=== PATIENT | female | born 1975 ===

== ENCOUNTER 2017-09-25 08:28 | Observation (INO) | payer OTHER ==
--- NOTE | 2017-09-25 08:44 | ED PDOC ---
Arrival/HPI - General Chief Complaint: Chest Pain Time Seen by Provider: 09/25/17 08:43 Historian: Patient, EMS - History of Present Illness Narrative History of Present Illness (Text): 09/25/17 08:50 pt p/w + 1 day onset of left chest discomfort, at most pain was 10/10, pt states chest pain is non-radiating and intermittently waxing and waning; pt has no energy, very fatigued, short of breath easily with exertion, + intermittent nausea/vomiting, pt vomited while in the EMS; pt states + dizziness/ lightheadedness (no LOC); pt states she was calmy/sweaty with her onset of chest pain; pt states no fever/chills, no palpitations, no abd pain, no urinary/ bowel changes, no rashes/lesions, no Fall/trauma/sick contact, no travel; pt denied any bleeding currently pt recently was admitted at [facility] 2 weeks ago and was told she had a heart attack and was subsequently discharged a few days later; pt then developed another episode of chest pain and was admitted into [facility] 8 days ago, pt received 2 cardiac stents 5 days ago and was discharged home 4 days ago; pt is due for another stent placement at [facility] this coming sunday (3 days from now) PCP: Dr Vizcaion Cards: Dr Gonzalez Time/Duration: 24 hours Symptom Onset: Sudden Symptom Course: Worsening Quality: Tightness, Cramping Severity Level: Severe Activities at Onset: Rest Context: Home Past Medical History - Provider Review Nursing Documentation Reviewed: Yes - Travel History Have you recently traveled outside [place] w/in the past 3 mons?: No - Past History Past History: Non-Contributing - Infectious Disease Hx of Infectious Diseases: None - Reproductive Currently : Unknown - Cardiac Hx Cardiac Disorders: Yes (CABG) - Pulmonary Hx Respiratory Disorders: No - Neurological Hx Neurological Disorder: No - HEENT Hx HEENT Disorder: No - Renal Hx Renal Disorder: No - Endocrine/Metabolic Hx Endocrine Disorders: No - Hematological/Oncological Hx Blood Disorders: No - Integumentary Hx Dermatological Disorder: No - Musculoskeletal/Rheumatological Hx Falls: No Hx Herniated Disk: Yes (chronic back pain) - Gastrointestinal Hx Gastrointestinal Disorders: No - Genitourinary/Gynecological Hx Genitourinary Disorders: No - Psychiatric Hx Psychophysiologic Disorder: No Hx Substance Use: No - Surgical History Hx Open Heart Surgery: Yes (Cabg) Family/Social History - Physician Review Nursing Documentation Reviewed: Yes Family/Social History: Unknown Family HX Smoking Status: Never Smoked Hx Alcohol Use: No Hx Substance Use: No Hx Substance Use Treatment: No Allergies/Home Meds Allergies/Adverse Reactions: Allergies No Known Allergies Allergy (Verified 09/25/17 08:59) Home Medications: Home Meds Medication Instructions Recorded Confirmed Atorvastatin Calcium [Lipitor] 40 mg PO DAILY 01/10/14 09/25/17 Metoprolol Tartrate [Lopressor] 12.5 mg PO BID 09/25/17 09/25/17 Multivitamin [Daily Mary] 1 tab PO DAILY 09/25/17 09/25/17 Pantoprazole Sodium [Protonix] 40 mg PO DAILY 09/25/17 09/25/17 Ranolazine [Ranexa] 500 mg PO BID 09/25/17 09/25/17 Ticagrelor [Brilinta] 90 mg PO BID 09/25/17 09/25/17 Review of Systems - Review of Systems Constitutional: Fatigue Eyes: Normal ENT: Normal Respiratory: Normal Cardiovascular: Chest Pain, SANCHEZ Gastrointestinal: Nausea, Vomiting. absent: Abdominal Pain, Appetite Changes Genitourinary Female: Normal Musculoskeletal: Normal Skin: Normal Neurological: Dizziness Endocrine: Normal Hemo/Lymphatic: Normal Psychiatric: Normal Physical Exam - Physical Exam Narrative Physical Exam (Text): 09/25/17 General: alert/awake, GCS = 15, oriented x 3, resting in bed, uncomfortable, cooperative, interactive; NAD Head: NC/AT EYE: PERRLA, EOMI, sclera anicteric, no nystagmus, no photophobia; wearing eye glasses; visual field intact b/l Facial: WNL Oral: uvula/tongue are midline, no exudate/lesions, no drooling/stridor, no dysphonia; intact dentitions NECK: intact ROM, no midline tenderness, no nuchal rigidity, no meningeal signs ; no step off Chest: CTA b/l, no w/r/r; no tachypenia, no accessory muscle use noted Chest Wall: no crepitus, no lesions, no gross deformities, no focal tenderness Cardiac: +S1, +S2, no m/r/r, no tachycardia Abdominal: +BS, soft/nd/nt, well nourished patient; no masses/rebound/guarding/ rigidity; no kirkland's sign, no mcburney's point tenderness Extremities: intact ROM, strength 5/5 grossly intact in all limbs, neurovasc intact b/l; + ambulatory; reflex +2/2; no pitting edema/leg swelling noted b/l; no nora's sign b/l BACK: no step off, no midline tenderness, NO crepitus, no gross deformities noted; Intact ROM SKIN: cap refill < 1 sec, no ulcerations, no petechiae, no rashes; no pallor NEURO: CNII-XII WNL, no facial asymmetries, no slurr speech, oriented x 3 NIH stroke scale ~ 0 Psych: normal insight, flat affect; follows command with ease Vital Signs Reviewed: Yes Vital Signs Temp Pulse Pulse Resp BP BP Pulse Ox 09/25/17 12:00 99 F 57 L 20 127/81 09/25/17 11:36 50 L 18 113/77 98 09/25/17 09:10 62 137/86 09/25/17 09:09 98.3 F 09/25/17 08:44 78 19 137/86 98 Temperature: Afebrile Blood Pressure: Normal Pulse: Regular Respiratory Rate: Normal Appearance: Positive for: Well-Appearing, Non-Toxic, Uncomfortable. No: Comfortable, Ill-Appearing, Unkept Pain Distress: Mild Mental Status: Positive for: Alert and Oriented X 3 - Systems Exam Head: Present: Atraumatic, Normocephalic Medical Decision Making ED Course and Treatment: 09/25/17 Impression: chest pain, n/v I have considered all Differential Diagnosis regarding pt's chief medical complaints/clinical findings included but are not limited to: ACS Plan: -- EKG -- Chest X-ray -- Labs, ACS -- Reassess and disposition Progress Notes: pt took her ASA prior to emergency department arrival, pt was instructed by EMS dispatcher to take a full dose aspirin pt currently states chest discomfort left sided, at 7/10 awaiting diagnostic results pt is requesting to be transferred to [facility] for further cardiac care/evaluation paging Dr Gonzalez 09/25/17 09:05 i was told by community youth secretary that Dr Gonzalez is currently in a procedure, will call back 09/25/17 10:[address] Gonzalez, who recommended pt to be admitted at [facility] and he will try to arrange for a bed for patient; but would like patient admitted currently pt is made aware of her medical results agrees with admission [id number] bobo, convention planner PCP, made aware, agrees with admission; to consult cards (Dr Trinidad); will likely arrange for transfer to [facility] (for Dr Gonzalez ) once pt is settle in the hospital vital signs WNL Re-evaluation Time: 09:01 Reassessment Condition: Improving,but remains with symptoms - Lab Interpretations Lab Results: 09/25/17 08:48 09/25/17 08:48 Lab Results 09/25/17 08:48: Sodium 142, Potassium 3.8, Chloride 106, Carbon Dioxide 23, Anion Gap 17, BUN 10, Creatinine 0.6 L, Est GFR ( Amer) > 60, Est GFR ( Non-Af Amer) > 60, Random Glucose 150 H, Calcium 9.2, Magnesium 1.9, Total Bilirubin 0.6, AST 56 H, ALT 134 H, Alkaline Phosphatase 64, Lactate Dehydrogenase 431, Total Creatine Kinase 50, Troponin I 0.03 D, NT-Pro-B Natriuret Pep 342, Total Protein 8.0, Albumin 4.4, Globulin 3.6, Albumin/ Globulin Ratio 1.2, Lipase 76 09/25/17 08:48: PT 11.8, INR 1.03, APTT 29.6 09/25/17 08:48: WBC 6.1, RBC 4.79, Hgb 15.0, Hct 42.6, MCV 88.9, MCH 31.3, MCHC 35.2, RDW 12.8, Plt Count 350, MPV 9.2, Gran % 61.2, Lymph % (Auto) 30.8, Surry % (Auto) 5.4, Eos % (Auto) 2.3, Baso % (Auto) 0.3, Gran # 3.71, Lymph # (Auto) 1.9, Surry # (Auto) 0.3, Eos # (Auto) 0.1, Baso # (Auto) 0.02 I have reviewed the lab results: Yes Interpretation: Abnormal lab values - RAD Interpretation Narrative RAD Interpretations (Text): 09/25/17 16:01 HISTORY: chest pain, recent MD COMPARISON: 01/08/2014 FINDINGS: LUNGS: No active pulmonary disease. PLEURA: No significant pleural effusion identified, no pneumothorax apparent. CARDIOVASCULAR: CABG. Normal heart size. OSSEOUS STRUCTURES: No significant abnormalities. VISUALIZED UPPER ABDOMEN: Normal. OTHER FINDINGS: None. IMPRESSION: No active disease. Radiology Orders: 09/25/17 08:54 CHEST PORTABLE [RAD] Stat Heat Seal Operator: Radiologist - EKG Interpretation EKG Interpretation (Text): 09/25/17 09:03 NSR at 75 bpm, normal axis, no ectopy, qs in leads III/F, inverted T In leads III/F, incomplete RBBB, no st changes, ABNL EKG; changes compare with old ekg Interpreted by ED Physician: Yes Type: 12 lead EKG Comparison: Different from prev. EKG - Medication Orders Current Medication Orders: Aspirin (Ecotrin) 81 mg PO DAILY ZHEN Atorvastatin Calcium (Lipitor) 40 mg PO DAILY ZHEN Enoxaparin Sodium (Lovenox) 90 mg SC Q12H ZHEN PRN Reason: Protocol Last Admin: 09/25/17 13:46 Dose: 90 mg Subcutaneous Administrations Document 09/25/17 13:46 KL (Rec: 09/25/17 13:47 KL [id number]) Injection Site MAR Injection Site Right Abdomen Charges for Administration # of Subcutaneous Administrations 1 Metoprolol Tartrate (Lopressor) 12.5 mg PO BID ZHEN Nitroglycerin (Nitro-Bid 2% Oint) 0.5 ea TOP Q6H ZHEN Last Admin: 09/25/17 13:38 Dose: Ticagrelor (Brilinta) 90 mg PO BID ZHEN Discontinued Medications Famotidine (Pepcid 20mg/50ml Premix) 20 mg in 50 mls @ 100 mls/hr IVPB STAT STA Stop: 09/25/17 09:24 Last Admin: 09/25/17 09:01 Dose: 100 mls/hr eMAR Start Stop Document 09/25/17 09:01 LAC (Rec: 09/25/17 09:01 LAC [id number]) Intravenous Solution Start Date 09/25/17 Start Time 09:01 End Date 09/25/17 End time 09:10 Total Infusion Time 9 Sodium Chloride (Sodium Chloride 0.9%) 1,000 mls @ 100 mls/hr IV .Q10H ZHEN Last Admin: 09/25/17 11:52 Dose: 100 mls/hr eMAR Start Stop Document 09/25/17 11:52 EQ (Rec: 09/25/17 11:52 EQ [id number]) Intravenous Solution Start Date 09/25/17 Start Time 09:30 Morphine Sulfate (Morphine) 4 mg IVP STAT STA Stop: 09/25/17 08:54 Last Admin: 09/25/17 09:00 Dose: 4 mg MAR Pain Assessment Document 09/25/17 09:00 LAC (Rec: 09/25/17 09:01 LAC [id number]) Pain Reassessment Is this a pain reassessment? No Sleep Is patient sleeping during reassessment? No Presence of Pain Presence of Pain Yes Pain Scale Used Pain Scale Used Numeric Description Intensity of Pain at present 7 IVP Administration Document 09/25/17 09:00 LAC (Rec: 09/25/17 09:01 LAC [id number]) Charges for Administration # of IVP Administrations 1 Nitroglycerin (Nitro-Bid 2% Oint) 1 ea TOP STAT STA Stop: 09/25/17 10:52 Last Admin: 09/25/17 11:52 Dose: 1 ea Ondansetron HCl (Zofran Inj) 4 mg IVP STAT STA Stop: 09/25/17 08:55 Last Admin: 09/25/17 09:01 Dose: 4 mg IVP Administration Document 09/25/17 09:01 LAC (Rec: 09/25/17 09:01 LAC [id number]) Charges for Administration # of IVP Administrations 1 Pneumococcal Polyvalent Vaccine (Pneumovax 23 Vaccine) 0.5 ml IM .ONCE ONE Stop: 09/25/17 14:07 Potassium Chloride (K-Dur 20 Meq Er Tab) 40 meq PO ONCE ONE Stop: 09/25/17 13:02 Last Admin: 09/25/17 13:46 Dose: 40 meq - Scribe Statement The provider has reviewed the documentation as recorded by the Prateek Hernandez Provider Scribe Attestation: All medical record entries made by the Scribe were at my direction and personally dictated by me. I have reviewed the chart and agree that the record accurately reflects my personal performance of the history, physical exam, medical decision making, and the department course for this patient. I have also personally directed, reviewed, and agree with the discharge instructions and disposition. Disposition/Present on Arrival - Present on Arrival Any Indicators Present on Arrival: No History of DVT/PE: No History of Uncontrolled Diabetes: No Urinary Catheter: No History of Decub. Ulcer: No History Surgical Site Infection Following: None - Disposition Have Diagnosis and Disposition been Completed?: Yes Diagnosis: Chest pain with high risk for cardiac etiology Disposition: HOSPITALIZED Disposition Time: 10:00 Patient Plan: Admission, Telemetry Patient Problems: Current Active Problems Problem Status Onset Chest pain with high risk for cardiac etiology Acute Condition: STABLE
[2017-09-25 08:47] VITALS: BMI 36.8
[2017-09-25] MEDS ORDERED: Morphine 4 mg/ml ISec IVP STA (08:53)
[2017-09-25] MEDS ORDERED: Famotidine 20mg/50ml 20 MG/50 ML BAG IVPB STA (08:55)
[2017-09-25 09:22] LABS: BASO # 0.02 K/mm3 (0.0-2.0); BASO % 0.3 % (0.0-3.0); EOS # 0.1 (0.0-0.7); EOS % 2.3 % (1.5-5.0); GRAN # 3.71 (1.4-6.5); GRAN % 61.2 % (50.0-68.0); LYMPH # 1.9 (1.2-3.4); LYMPH % 30.8 % (22.0-35.0); MEAN CELL VOLUME 88.9 fl (80.0-105.0); MEAN CORPUSCULAR HEMOGLOBIN 31.3 pg (25.0-35.0); MEAN CORPUSCULAR HGB CONC 35.2 g/dl (31.0-37.0); MEAN PLATELET VOLUME 9.2 fl (7.0-11.0); MONO # 0.3 (0.1-0.6); MONO % 5.4 % (1.0-6.0); RBC 4.79 10^6/uL (3.5-6.1); RED CELL DISTRIBUTION WIDTH 12.8 % (11.5-14.5); WHITE BLOOD COUNT 6.1 10^3/ul (4.5-11.0)
[2017-09-25 09:28] LABS: INR 1.03 (0.93-1.08); PARTIAL THROMBOPLASTIN TIME 29.6 Seconds (25.1-36.5); PROTHROMBIN TIME 11.8 SECONDS (9.4-12.5)
[2017-09-25] MEDS ORDERED: Sodium Chloride 0.9% 1,000 ML IV SCH (09:30)
[2017-09-25 09:49] LABS: ALB/GLOB RATIO 1.2 (1.1-1.8); ALBUMIN 4.4 g/dL (3.0-4.8); ALT/SGPT 134 U/L (7-56); AST/SGOT 56 U/L (14-36); BLOOD UREA NITROGEN 10 mg/dL (7-21); CALCIUM 9.2 mg/dL (8.4-10.5); GFR NON-AFRICAN AMERICAN > 60; LIPASE 76 U/L (23-300)
[2017-09-25 10:06] LABS: B-TYPE NATRIURETIC PEPTIDE 342 pg/mL (0-450)
[2017-09-25 10:07] LABS: TROPONIN I 0.03 ng/mL
[2017-09-25] MEDS ORDERED: Nitroglycerin 2% Ointment Foilpak UD TOP STA (10:51)
[2017-09-25 12:03] LABS: URINE BILIRUBIN NEGATIVE (NEGATIVE); URINE BLOOD NEGATIVE (NEGATIVE); URINE GLUCOSE (UA) NEGATIVE (NEGATIVE); URINE LEUKOCYTE ESTERASE NEGATIVE Leu/uL (NEGATIVE); URINE PROTEIN NEGATIVE mg/dL (<30 mg/dL); URINE UROBILINOGEN 0.2 E.U./dL (<1 E.U./dL)
[2017-09-25 12:05] LABS: URINE APPEARANCE CLEAR (CLEAR); URINE COLOR YELLOW (YELLOW)
[2017-09-25] MEDS ORDERED: Potassium Chloride 20 mEq ER Tab PO ONE (13:01)
--- NOTE | 2017-09-25 13:07 | RAD ---
HISTORY: chest pain, recent [place] COMPARISON: 01/08/2014 FINDINGS: LUNGS: No active pulmonary disease. PLEURA: No significant pleural effusion identified, no pneumothorax apparent. CARDIOVASCULAR: CABG. Normal heart size. OSSEOUS STRUCTURES: No significant abnormalities. VISUALIZED UPPER ABDOMEN: Normal. OTHER FINDINGS: None. IMPRESSION: No active disease.
[2017-09-25] MEDS: Nitroglycerin 2% Ointment Foilpak UD TOP SCH ×2 (13:38→20:08)
[2017-09-25] MEDS: Enoxaparin 100 mg Syringe SC SCH (13:46)
[2017-09-25] MEDS ORDERED: Pneumococcal 23-Valent Vaccine IM ONE (14:06)
[2017-09-25 15:43] LABS: TROPONIN I 0.02 ng/mL
[2017-09-25 22:00] LABS: TROPONIN I 0.02 ng/mL
--- NOTE | 2017-09-25 22:53 | CARD ---
APPROVED REPORT EKG Measurement Heart [id number] <Conclusion> Normal sinus rhythm Incomplete right bundle branch block T wave abnormality, consider inferior ischemia Abnormal ECG
[2017-09-26 00:03] VITALS: O2SAT 100
--- NOTE | 2017-09-26 00:43 | CON ---
DATE: 09/25/2017 REASON FOR THE CONSULTATION AND FOLLOWUP: Chest pain, history of coronary artery disease, history of recent stent deployment. BRIEF CLINICAL HISTORY: This is a 41-year-old hypertensive female with a very strong family history of coronary artery disease, is status post coronary artery bypass surgery 10 years ago at [facility], who recently had chest pain recurrent, admitted 2 weeks ago at [facility] and had a cardiac catheterization done and medical treatment recommended. Then, the patient was readmitted again with chest pain and admitted to [facility] last and had a cardiac catheterization and 2 stents were deployed, left main and circumflex, by Dr. Alex Gonzalez, and at that time, the cardiac catheterization revealed all bypasses closed except [place] patent to LAD, with LAD diffusely diseased. So, Dr. 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 The patient developed chest pain off and on since 3 days like some sensation, so came to the emergency room. Denies any chest pain now. PAST MEDICAL HISTORY: Significant for coronary artery disease status post coronary artery bypass surgery, 5 bypasses 10 years ago at [facility]. Then recently, 2 cardiac catheterization, first in [facility] 2 weeks ago and medical treatment recommended; recently, then again admitted with chest pain at [facility] and cardiac catheterization done by Dr. Alex Gonzalez, stent in left main and circumflex was done last . Past history also significant for hypertension and hyperlipidemia. SOCIAL HISTORY: Denies any smoking. Denies any history of alcohol abuse. FAMILY HISTORY: Very strong family history of coronary artery disease in father and mother, and every family member except her and the youngest brother. PAST SURGICAL HISTORY: Significant for coronary artery bypass surgery 10 years ago. CURRENT MEDICATIONS: The patient is taking baby aspirin 81 mg daily, atorvastatin, aspirin, Brilinta, metoprolol. REVIEW OF SYSTEMS: As per HPI. PHYSICAL EXAMINATION: VITAL SIGNS: Temperature is afebrile, heart rate 54, blood pressure 113/77. HEENT: PERRLA. Extraocular muscles intact. NECK: Supple. No carotid bruits or thyromegaly. CHEST: Clear to auscultation. HEART: S1 and S2 regular. ABDOMEN: Soft. EXTREMITIES: Clubbing and cyanosis negative. LABORATORY DATA: WBC hemoglobin 15, hematocrit 42.6, platelet count 350. Chemistry shows sodium 142, potassium 3, chloride 106, carbon dioxide 23, anion gap of 17, BUN 10, creatinine 0.6. Troponin 0.03. EKG shows normal sinus, incomplete left bundle. IMPRESSION: Unstable angina, hypertension, diabetes, hyperlipidemia, coronary artery disease status post coronary artery bypass graft 10 years ago, status post recent coronary intervention of the circumflex and left main. Discussed with Dr. Alex Gonzalez, who gave the details. The patient had a recent cardiac catheterization and revealed all bypasses closed except left internal mammary artery patent to left anterior descending artery, and left anterior descending distal diffusely diseased. He did a stent in the circumflex and left main, and plan is to do CT of right coronary artery in a month. RECOMMENDATIONS: We will treat unstable angina, Lovenox Brilinta, metoprolol and high dose of Lipitor. Further recommendations will depend on hospital course. If the troponin remains flat, we will discharge the patient, outpatient followup with Dr. Gonzalez, but if the troponin remains positive, then consider cardiac catheterization. We will follow with you. Thank you Dr. Johnson for providing me the opportunity in taking care of Isabel Sims. Preeti Ramirez MD
[2017-09-26] MEDS: Nitroglycerin 2% Ointment Foilpak UD TOP SCH ×2 (01:04→10:58)
[2017-09-26] MEDS: Enoxaparin 100 mg Syringe SC SCH (01:04)
[2017-09-26 06:55] LABS: BASO # 0.02 K/mm3 (0.0-2.0); BASO % 0.2 % (0.0-3.0); EOS # 0.2 (0.0-0.7); EOS % 2.4 % (1.5-5.0); GRAN # 6.73 (1.4-6.5); GRAN % 67.1 % (50.0-68.0); LYMPH # 2.4 (1.2-3.4); LYMPH % 23.5 % (22.0-35.0); MEAN CELL VOLUME 90.4 fl (80.0-105.0); MEAN CORPUSCULAR HEMOGLOBIN 30.6 pg (25.0-35.0); MEAN CORPUSCULAR HGB CONC 33.8 g/dl (31.0-37.0); MEAN PLATELET VOLUME 9.1 fl (7.0-11.0); MONO # 0.7 (0.1-0.6); MONO % 6.8 % (1.0-6.0); RBC 4.58 10^6/uL (3.5-6.1); RED CELL DISTRIBUTION WIDTH 13.1 % (11.5-14.5)
--- NOTE | 2017-09-26 06:58 | HP ---
CHIEF COMPLAINTS: Chest pain. HISTORY OF PRESENT ILLNESS: Ms. Isabel Sims is a 41-year-old female came with left-sided chest discomfort. Pain was like 01/09. Patient stated the chest pain is nonradiating and intermittent, waxing and waning. Patient has no energy. Very fatigued, short of breath easily on exertion plus intermittent nausea and vomiting with pain. Patient vomited while in the EMS. Patient states that, "I have dizziness and lightheadedness." No loss of consciousness. Patient states that she has clammy, sweaty with her onset of the chest pain and states no fever, no chills, no palpitation, no abdominal pain, no urinary or bowel changes. No rashes or lesions, fall, trauma, sick contact. No travel. Patient recently was admitted at [facility] 2 weeks ago and was told that she had a heart attack and was subsequently discharged 2 days later. Patient then developed another episode of chest pain and was admitted in [facility] 8 days ago. Patient received 2 cardiac stents 5 days ago and was discharged home 4 days ago. Patient is due to another stent placement at [facility] this coming Sunday, 3 days from now, but now has chest pain and called 911. Actually, patient was supposed to go to [facility], but patient came to [facility]. [facility] ER physician spoke to Dr. Gonzalez, patient's rn pool. He admitted the patient and the patient was seen in the telemetry. At that moment, she was comfortable. No nausea, vomiting, diarrhea. No headache, no dizziness. No fever, no chills. PAST MEDICAL HISTORY: CABG, chronic back pain, history of open heart surgery. FAMILY HISTORY: Father with a heart attack in his young age. HABITS: Never smoked. No drugs. No ethanol. ALLERGIES: PATIENT IS NOT ALLERGIC WITH ANY MEDICATIONS. HOME MEDICATIONS: Lipitor, Lopressor, multivitamin, sodium, Protonix, Ranexa, Brilinta. REVIEW OF SYSTEMS: Patient was seen and examined at the bedside in her room, having headache, may be due to medicine side effect. Feeling fatigue. Chest pain is better, but still feeling sore. Has a history of nausea and vomiting with chest pain, shortness of breath. No fever. No chills. PHYSICAL EXAMINATION: VITAL SIGNS: Temperature 98.3, respiratory rate 18, pulse 62, blood pressure 113/70, pulse oximetry is 98. HEENT: Head: Normocephalic, atraumatic. Eyes: PERRLA. Extraocular muscles intact. Conjunctivae clear. Nose: Patent. Mucous membrane moist. NECK: Supple. No carotid bruit. No JVD or thyromegaly. CHEST: Bilaterally symmetrical. HEART: S1 and S2 positive. LUNGS: Clear to auscultation. ABDOMEN: Soft. Bowel sounds positive. No organomegaly. EXTREMITIES: No edema. No cyanosis. NEUROLOGICAL: Patient is awake and alert. Moving all 4 extremities. No focal deficits. LABORATORY DATA: White blood cells 6.1, hemoglobin 15, hematocrit 42.6, platelets 350. Sodium 142, potassium 3.8, BUN 10, creatinine 0.6, glucose 150. ASSESSMENT AND PLAN: Ms. Isabel Sims is a 41-year-old lady came with chest pain. Chest x-ray done. No active pulmonary disease. EKG reviewed by me. Aspirin given, atorvastatin given, Lovenox started. Chest pain with a high risk of cardiac etiology because of the family history and her own history because of the coronary artery bypass graft. Patient has recently 2 stents placed, 3rd to be on Sunday, 3 days from today. Patient's rn pool is Dr. Gonzalez. Emergency room physician spoke to Dr. Gonzalez. Right now, we called consult with the rn pool, Dr. Ramirez. Tylenol given for headache. Started home medications. Ruled out gastroesophageal reflux disease, dyspepsia. Gastrointestinal, deep venous thrombosis prophylaxis. Repeat labs. We will follow up. Rosalinda Johnson MD MTDBrian
[2017-09-26 07:13] LABS: ALB/GLOB RATIO 1.2 (1.1-1.8); ALT/SGPT 96 U/L (7-56); AST/SGOT 33 U/L (14-36); BLOOD UREA NITROGEN 11 mg/dL (7-21); GFR NON-AFRICAN AMERICAN > 60; HDL CHOLESTEROL 28 mg/dL (29-60)
[2017-09-26 07:18] LABS: LDL CHOLESTEROL 161 mg/dL (0-129)
--- NOTE | 2017-09-26 08:06 | CP.PCM.PN ---
Subjective - Date & Time of Evaluation Date of Evaluation: 09/26/17 Time of Evaluation: 06:50 - Subjective Subjective: Awake, complaining of mild intermittent left chest pain localized, tenderness at site,musculoskeletal in nature Reason for consultation and follow up: Cardiac evaluation for chest pain, Seen and examined by me and Dr. Ramirez Objective - Vital Signs/Intake and Output Vital Signs (last 24 hours): Temp Pulse Resp BP Pulse Ox 97.9 F 66 19 110/61 100 09/26/17 06:00 09/26/17 06:00 09/26/17 06:00 09/26/17 06:00 09/26/17 06:00 Intake and Output: 09/26/17 09/26/17 06:59 18:59 Intake Total 240 Balance 240 - Medications Medications: Current Medications Aspirin (Ecotrin) 81 mg PO DAILY [facility] Atorvastatin Calcium (Lipitor) 80 mg PO DIN [facility] Enoxaparin Sodium (Lovenox) 90 mg SC Q12H [facility] PRN Reason: Protocol Last Admin: 09/26/17 01:04 Dose: 90 mg Famotidine (Pepcid) 40 mg PO HS [facility] Last Admin: 09/25/17 22:12 Dose: 40 mg Metoprolol Tartrate (Lopressor) 12.5 mg PO BID [facility] Last Admin: 09/25/17 18:03 Dose: 12.5 mg Nitroglycerin (Nitro-Bid 2% Oint) 0.5 ea TOP Q6H [facility] Last Admin: 09/26/17 01:04 Dose: 0.5 ea Ticagrelor (Brilinta) 90 mg PO BID [facility] Last Admin: 09/25/17 18:02 Dose: 90 mg - Labs Labs: 09/26/17 06:30 09/26/17 06:30 PT 11.8 SECONDS (9.4-12.5) 09/25/17 08:48 INR 1.03 (0.93-1.08) 09/25/17 08:48 APTT 29.6 Seconds (25.1-36.5) 09/25/17 08:48 - Constitutional Appears: No Acute Distress - Head Exam Head Exam: NORMOCEPHALIC - Eye Exam Eye Exam: Normal appearance - ENT Exam ENT Exam: Mucous Membranes Moist - Respiratory Exam Respiratory Exam: Clear to Ausculation Bilateral, NORMAL BREATHING PATTERN - Cardiovascular Exam Cardiovascular Exam: REGULAR RHYTHM, +S1, +S2 Additional comments: mild upper chest pain, non radiating, some tenderness, Musculoskeletal in nature Telemetry- SB -50's - GI/Abdominal Exam GI & Abdominal Exam: Soft, Normal Bowel Sounds - Extremities Exam Extremities Exam: Normal Capillary Refill - Neurological Exam Neurological Exam: Alert, Awake, Oriented x3 - Psychiatric Exam Psychiatric exam: Anxious - Skin Skin Exam: Intact, Normal Color, Warm Assessment and Plan - Assessment and Plan (Free Text) Assessment: A 41 year old female who came in to the ER due to left chest discomfort,non radiating and intermittent. History of CABG 10 years ago. History of PTCA last at [facility] by Dr. Gonzalez. history of chronic back pain. She has a strong family cardiac history. Plan: No evidence of ischemia Troponin x 3 normal Some tenderness on left chest side musculoskeletal in nature, Will start Motrin 600 mg every 8 hours PRN Anxiety, will start Xanax 0.25 mg BID PRN Ambulating Discontinue Telemetry May discharge home and follow up with Dr. Gonzalez Plan and treatment discussed with Dr. Ramirez
[2017-09-26 14:10] VITALS: BP 113/73; PULSE 85; RESP 20; TEMP 98.2
--- NOTE | 2017-09-26 17:16 | CARD ---
APPROVED REPORT EXAM: Two-dimensional and M-mode echocardiogram with Doppler and color Doppler. INDICATION Chest Pain 2D DIMENSIONS Left Atrium (2D)3.9 (1.6-4.0cm)IVSd0.8 (0.7-1.1cm) LVDd4.3 (3.9-5.9cm)PWd1.0 (0.7-1.1cm) LVDs3.3 (2.5-4.0cm)FS (%) 23.7 % LVEF (%)47.5 (>50%) M-Mode DIMENSIONS Aortic Root2.40 (2.2-3.7cm)Aortic Cusp Exc.1.50 (1.5-2.0cm) Aortic Valve AoV Peak Ejkyyzfu661.0cm/Kathleen Peak GR.8mmHg Mitral Valve MV E Biviwoma41.2cm/sMV A Kqjpdote19.4cm/sE/A ratio1.4 TDI E/Lateral E'0.0E/Medial E'0.0 Tricuspid Valve TR Peak [id number]/sRAP [id number] Peak Gr.18mmHg [id number] LEFT VENTRICLE The left ventricle is normal size. There is normal left ventricular wall thickness. The systolic function is mildly impaired.EF-45% There is mild to moderate hypokinesis in the mid-anteroseptal wall. The left ventricular diastolic function is normal. No left ventricle thrombus noted on this study. There is no ventricular septal defect visualized. There is no left ventricular aneurysm. There is no mass noted in the left ventricle. RIGHT VENTRICLE The right ventricle is normal size. There is normal right ventricular wall thickness. The right ventricular systolic function is normal. ATRIA The left atrium size is normal. The right atrium size is normal. The interatrial septum is intact with no evidence for an atrial septal defect. AORTIC VALVE The aortic valve is thickened but opens well. No aortic regurgitation is present. There is no aortic valvular stenosis. There is no aortic valvular vegetation. MITRAL VALVE The mitral valve is thickened but opens well. Mitral regurgitation is trace. There is no mitral valve stenosis. There is no evidence of mitral valve prolapse. TRICUSPID VALVE The tricuspid valve leaflets are thickened , but open well. There is trace to mild tricuspid regurgitation.RVSP-28 mmof hg. There is no tricuspid valve stenosis. There is no tricuspid valve prolapse or vegetation. PULMONIC VALVE The pulmonic valve is borderline thickened. There is trace pulmonic valvular regurgitation. There is no pulmonic valvular stenosis. GREAT VESSELS The aortic root is normal in size. The ascending aorta is normal in size. The pulmonary artery is normal. The IVC is normal in size and collapses >50% with inspiration. PERICARDIAL EFFUSION There is no pleural effusion. There is no pericardial effusion. <Conclusion> The left ventricle is normal size. There is normal left ventricular wall thickness. The systolic function is mildly impaired.EF-45% There is mild to moderate hypokinesis in the mid-anteroseptal wall. Mitral regurgitation is trace. The tricuspid valve leaflets are thickened , but open well. There is trace to mild tricuspid regurgitation.RVSP-28 mmof hg. There is trace pulmonic valvular regurgitation. The IVC is normal in size and collapses >50% with inspiration. There is no pericardial effusion.
== END 2017-09-26 15:01 | disposition home or self-care (01) ==
LOC: ED 08:28 → INTOOBSV 10:49 → ERH 10:49 → 2RNO 12:08
PROVIDERS: ADMIT Internal Medicine; ATTEND Internal Medicine
DX: I25.110 Atherosclerotic heart disease of native coronary artery with unstable angina pectoris (principal); I10 Essential (primary) hypertension; E78.5 Hyperlipidemia, unspecified; R51 Headache; G89.29 Other chronic pain; M54.9 Dorsalgia, unspecified; Z95.1 Presence of aortocoronary bypass graft; Z95.5 Presence of coronary angioplasty implant and graft; Z82.49 Family history of ischemic heart disease and other diseases of the circulatory system
CPT/HCPCS: 36415; 71045; 80053; 80061; 81003; 82550; 83036; 83615; 83690; 83735; 83880; 84100; 84443; 84484; 85025; 85610; 85730; 93005; 93306; 96374; 96375; 99285; G0378; J1650; J2270; J2405; J7030

== ENCOUNTER 2017-10-04 15:46 | Emergency (ER) | payer OTHER ==
[2017-10-04 16:00] VITALS: RESP 18
[2017-10-04 16:01] VITALS: BMI 35.9
--- NOTE | 2017-10-04 16:50 | ED PDOC ---
Arrival/HPI - General Chief Complaint: Chest Pain Time Seen by Provider: 10/04/17 16:01 Historian: Patient - History of Present Illness Narrative History of Present Illness (Text): 10/04/17 16:45 41 year old, whose past medical history includes CAD with stent, CABG, and hyperlipidemia, who presents to the Emergency department complaining of intermittent left sided chest pain that radiates to the left shoulder and left back for 6 days. Patent notes chest pain lasts a couple hours. Patient notes she visited her PMD with these symptoms, who ordered an US of the abdomen. Patient notes results have not come back yet. Patient denies any fever, chills, vomiting, diarrhea, back pain, neck pain, headache, dizziness, or any other complaints. Time/Duration: < week Symptom Onset: Gradual Symptom Course: Intermittent Activities at Onset: Light Context: Home Past Medical History - Provider Review Nursing Documentation Reviewed: Yes - Past History Past History: Non-Contributing - Infectious Disease Hx of Infectious Diseases: None - Reproductive Menopause: No - Cardiac Hx Cardiac Disorders: Yes (CABG) Other/Comment: cardiac stent - Pulmonary Hx Respiratory Disorders: No - Neurological Hx Neurological Disorder: No - HEENT Hx HEENT Disorder: No - Renal Hx Renal Disorder: No - Endocrine/Metabolic Hx Endocrine Disorders: No - Hematological/Oncological Hx Blood Disorders: No - Integumentary Hx Dermatological Disorder: No - Musculoskeletal/Rheumatological Hx Falls: No Hx Herniated Disk: Yes (chronic back pain) - Gastrointestinal Hx Gastrointestinal Disorders: No - Genitourinary/Gynecological Hx Genitourinary Disorders: No - Psychiatric Hx Psychophysiologic Disorder: No Hx Substance Use: No - Surgical History Hx Open Heart Surgery: Yes (Cabg) - Anesthesia Hx Anesthesia Reactions: No Family/Social History - Physician Review Nursing Documentation Reviewed: Yes Family/Social History: Unknown Family HX Smoking Status: Never Smoked Hx Alcohol Use: No Hx Substance Use: No Hx Substance Use Treatment: No Allergies/Home Meds Allergies/Adverse Reactions: Allergies No Known Allergies Allergy (Verified 09/25/17 08:59) Home Medications: Home Meds Medication Instructions Recorded Confirmed Atorvastatin Calcium [Lipitor] 40 mg PO DAILY 01/10/14 10/04/17 Metoprolol Tartrate [Lopressor] 12.5 mg PO BID 09/25/17 10/04/17 Multivitamin [Daily Mary] 1 tab PO DAILY 09/25/17 10/04/17 Ranolazine [Ranexa] 500 mg PO BID 09/25/17 10/04/17 Ticagrelor [Brilinta] 90 mg PO BID 09/25/17 10/04/17 Review of Systems - Physician Review All systems were reviewed & negative as marked: Yes - Review of Systems Constitutional: Normal Eyes: Normal ENT: Normal Respiratory: Normal. absent: SOB, Cough Cardiovascular: Chest Pain (left sided chest pain that radiates to the left shoulder and back) Gastrointestinal: Normal. absent: Abdominal Pain, Diarrhea, Nausea, Vomiting Genitourinary Female: Normal. absent: Dysuria, Frequency, Hematuria Musculoskeletal: Normal. absent: Back Pain, Neck Pain Skin: Normal. absent: Rash Neurological: Normal. absent: Headache, Dizziness Endocrine: Normal Hemo/Lymphatic: Normal Psychiatric: Normal Physical Exam - Physical Exam Narrative Physical Exam (Text): 10/04/17 16:51 Constitutional: No acute distress. Head: Normocephalic. Atraumatic. Eyes: PERRL. ENT: Moist mucous membranes. Neck: Supple. Cardiovascular: Regular rate. Chest: reproducible chest tenderness. Respiratory: Clear to auscultation bilaterally. GI: Soft. Nontender. Nondistended. Back: No CVA tenderness. Musculoskeletal: No tenderness or swelling of extremities. Skin: No rash. Neurologic: Alert, no focal deficit. Vital Signs Reviewed: Yes Vital Signs Temp Pulse Resp BP Pulse Ox 10/04/17 16:00 98.1 F 66 18 150/87 98 Temperature: Afebrile Blood Pressure: Normal Pulse: Regular Respiratory Rate: Normal Appearance: Positive for: Well-Appearing, Non-Toxic, Comfortable Pain Distress: None Mental Status: Positive for: Alert and Oriented X 3 Medical Decision Making ED Course and Treatment: 10/04/17 16:52 Impression: 41 year old female presents to the Emergency department complaining of intermittent left sided chest pain that radiates to the left shoulder and back. Plan: -- Labs -- Troponin -- CXR -- Toradol -- Reassess and disposition Progress Notes: 10/04/17 17:28 CXR reviewed, shows: LUNGS: No active pulmonary disease. PLEURA: No significant pleural effusion identified, no pneumothorax apparent. CARDIOVASCULAR: Prior sternotomy with sternal wires and surgical clips redemonstrated. Cardiomediastinal silhouette unchanged. OSSEOUS STRUCTURES: Unchanged. VISUALIZED UPPER ABDOMEN: Normal. OTHER FINDINGS: None. IMPRESSION: No active disease. Cardiac enzymes negative in this pain of 6 days duration. Patient states it feels better after Toradol. Will discharge home, f/u PMD/cardiology, return to ED for worsening or different pain, dyspnea, or any other problem. - Lab Interpretations Lab Results: 10/04/17 17:32 10/04/17 17:32 Lab Results 10/04/17 17:32: Sodium 143, Potassium 4.1, Chloride 106, Carbon Dioxide 23, Anion Gap 19, BUN 9, Creatinine 0.6 L, Est GFR ( Amer) > 60, Est GFR (Non -Af Amer) > 60, Random Glucose 96, Calcium 9.3, Total Bilirubin 0.3, AST 34, ALT 45, Alkaline Phosphatase 61, Total Creatine Kinase 54, Troponin I < 0.01 D , Total Protein 7.9, Albumin 4.4, Globulin 3.5, Albumin/Globulin Ratio 1.3 10/04/17 17:32: WBC 6.1 D, RBC 4.88, Hgb 15.3, Hct 43.3, MCV 88.7, MCH 31.4, MCHC 35.3, RDW 13.1, Plt Count 326, MPV 9.3, Gran % 61.3, Lymph % (Auto) 23.1, [place] % (Auto) 13.3 H, Eos % (Auto) 2.0, Baso % (Auto) 0.3, Gran # 3.74, Lymph # (Auto) 1.4, [place] # (Auto) 0.8 H, Eos # (Auto) 0.1, Baso # (Auto) 0.02 - RAD Interpretation Radiology Orders: 10/04/17 16:45 CHEST PORTABLE [RAD] Stat - Medication Orders Current Medication Orders: Discontinued Medications Ketorolac Tromethamine (Toradol) 30 mg IVP STAT STA Stop: 10/04/17 16:46 Last Admin: 10/04/17 17:36 Dose: 30 mg MAR Pain Assessment Document 10/04/17 17:36 HI (Rec: 10/04/17 17:38 HI [id number] Pain Reassessment Is this a pain reassessment? No IVP Administration Document 10/04/17 17:36 HI (Rec: 10/04/17 17:38 HI [id number] Charges for Administration # of IVP Administrations 1 - Scribe Statement The provider has reviewed the documentation as recorded by the Scribe Fiona Bernal All medical record entries made by the Scribe were at my direction and personally dictated by me. I have reviewed the chart and agree that the record accurately reflects my personal performance of the history, physical exam, medical decision making, and the department course for this patient. I have also personally directed, reviewed, and agree with the discharge instructions and disposition. Disposition/Present on Arrival - Present on Arrival Any Indicators Present on Arrival: No History of DVT/PE: No History of Uncontrolled Diabetes: No Urinary Catheter: No History of Decub. Ulcer: No History Surgical Site Infection Following: None - Disposition Have Diagnosis and Disposition been Completed?: Yes Diagnosis: Costochondritis Disposition: HOME/ ROUTINE Disposition Time: 18:12 Patient Plan: Discharge Condition: STABLE Discharge Instructions (ExitCare): Costochondritis (DC) Prescriptions: Ibuprofen [Advil] 2 tab PO Q6H #24 tablet Referrals: Rosalinda Johnson MD [Primary Care Provider] - Follow up with primary Forms: [employer] (Greenlandic)
--- NOTE | 2017-10-04 17:18 | RAD ---
HISTORY: reproducible chest tenderness, CABG/PCI COMPARISON: Chest radiograph dated 09/25/2017. FINDINGS: LUNGS: No active pulmonary disease. PLEURA: No significant pleural effusion identified, no pneumothorax apparent. CARDIOVASCULAR: Prior sternotomy with sternal wires and surgical clips redemonstrated. Cardiomediastinal silhouette unchanged. OSSEOUS STRUCTURES: Unchanged. VISUALIZED UPPER ABDOMEN: Normal. OTHER FINDINGS: None. IMPRESSION: No active disease.
[2017-10-04 17:56] LABS: ALB/GLOB RATIO 1.3 (1.1-1.8); ALBUMIN 4.4 g/dL (3.0-4.8); ALT/SGPT 45 U/L (7-56); AST/SGOT 34 U/L (14-36); BLOOD UREA NITROGEN 9 mg/dL (7-21); CALCIUM 9.3 mg/dL (8.4-10.5); GFR AFRICAN-AMERICAN > 60; GFR NON-AFRICAN AMERICAN > 60
[2017-10-04 18:01] LABS: BASO # 0.02 K/mm3 (0.0-2.0); BASO % 0.3 % (0.0-3.0); EOS # 0.1 (0.0-0.7); GRAN # 3.74 (1.4-6.5); GRAN % 61.3 % (50.0-68.0); HEMOGLOBIN 15.3 g/dL (12.0-16.0); LYMPH # 1.4 (1.2-3.4); LYMPH % 23.1 % (22.0-35.0); MEAN CELL VOLUME 88.7 fl (80.0-105.0); MEAN CORPUSCULAR HEMOGLOBIN 31.4 pg (25.0-35.0); MEAN CORPUSCULAR HGB CONC 35.3 g/dl (31.0-37.0); MEAN PLATELET VOLUME 9.3 fl (7.0-11.0); MONO # 0.8 (0.1-0.6); MONO % 13.3 % (1.0-6.0); RBC 4.88 10^6/uL (3.5-6.1); RED CELL DISTRIBUTION WIDTH 13.1 % (11.5-14.5); WHITE BLOOD COUNT 6.1 10^3/ul (4.5-11.0)
[2017-10-04 18:05] LABS: TROPONIN I < 0.01 ng/mL
[2017-10-04 19:15] VITALS: BP 147/82; PULSE 72; TEMP 98.2; O2SAT 99
--- NOTE | 2017-10-05 09:06 | CARD ---
APPROVED REPORT EKG Measurement Heart [id number] [place] [id number] <Conclusion> Normal sinus rhythm RVCD Slight ST elevations lll, F with T wave inversions - no change
== END 2017-10-04 18:24 | disposition home or self-care (01) ==
LOC: ED 15:46
DX: M94.0 Chondrocostal junction syndrome [Tietze] (principal); E78.5 Hyperlipidemia, unspecified; I25.10 Atherosclerotic heart disease of native coronary artery without angina pectoris
CPT/HCPCS: 71045; 80053; 82550; 84484; 85025; 93005; 96374; 99284; J1885

== ENCOUNTER 2018-05-12 09:22 | Emergency (ER) | payer OTHER ==
[2018-05-12 09:22] VITALS: BMI 35.9
[2018-05-12 09:42] VITALS: PULSE 73; RESP 16
--- NOTE | 2018-05-12 09:55 | ED PDOC ---
Arrival/HPI - General Chief Complaint: Lower Extremity Problem/Injury Time Seen by Provider: 05/12/18 09:25 Historian: Patient - History of Present Illness Narrative History of Present Illness (Text): 05/12/18 09:51 42-year-old female with a history of CABG on Brilinta to presents today with a sudden onset of left calf pain. Patient describes a cramping aching sensation in the left posterior calf. Patient denies trauma or injury. Patient states symptoms started suddenly today. Patient states the calf pain woke her from sleep. She denies headaches dizziness or weakness. Denies chest pain or shortness of breath. No abdominal pain. No vomiting or diarrhea. No medications have been taken at home for pain. pt was sent in by dr. Oliveira for r/o dvt Past Medical History - Provider Review Nursing Documentation Reviewed: Yes - Travel History Have you recently traveled outside [place] w/in the past 3 mons?: No - Past History Past History: Non-Contributing - Infectious Disease Hx of Infectious Diseases: None - Reproductive Currently : Unknown - Cardiac Hx Cardiac Disorders: Yes (CABG) Other/Comment: cardiac stent - Pulmonary Hx Respiratory Disorders: No - Neurological Hx Neurological Disorder: No - HEENT Hx HEENT Disorder: No - Renal Hx Renal Disorder: No - Endocrine/Metabolic Hx Endocrine Disorders: No - Hematological/Oncological Hx Blood Disorders: No - Integumentary Hx Dermatological Disorder: No - Musculoskeletal/Rheumatological Hx Falls: No Hx Herniated Disk: Yes (chronic back pain) - Gastrointestinal Hx Gastrointestinal Disorders: No - Genitourinary/Gynecological Hx Genitourinary Disorders: No - Psychiatric Hx Psychophysiologic Disorder: No Hx Substance Use: No - Surgical History Hx Open Heart Surgery: Yes (Cabg) - Anesthesia Hx Anesthesia: Yes Hx Anesthesia Reactions: No Hx Malignant Hyperthermia: No Family/Social History - Physician Review Nursing Documentation Reviewed: Yes Family/Social History: Unknown Family HX Smoking Status: Never Smoked Hx Alcohol Use: No Hx Substance Use: No Hx Substance Use Treatment: No Allergies/Home Meds Allergies/Adverse Reactions: Allergies No Known Allergies Allergy (Verified 09/25/17 08:59) Home Medications: Home Meds Medication Instructions Recorded Confirmed Atorvastatin Calcium [Lipitor] 40 mg PO DAILY 01/10/14 10/04/17 Metoprolol Tartrate [Lopressor] 12.5 mg PO BID 09/25/17 10/04/17 Multivitamin [Daily Mary] 1 tab PO DAILY 09/25/17 10/04/17 Ranolazine [Ranexa] 500 mg PO BID 09/25/17 10/04/17 Ticagrelor [Brilinta] 90 mg PO BID 09/25/17 10/04/17 Review of Systems - Review of Systems Constitutional: absent: Fatigue, Fevers Respiratory: absent: SOB, Cough Cardiovascular: absent: Chest Pain, Palpitations Gastrointestinal: absent: Abdominal Pain Musculoskeletal: Arthralgias (left calf pain) Skin: absent: Rash, Pruritis Neurological: absent: Headache, Dizziness Psychiatric: absent: Anxiety, Depression Physical Exam Vital Signs Reviewed: Yes Vital Signs Pulse Resp BP Pulse Ox 05/12/18 09:22 73 16 135/80 96 Temperature: Afebrile Blood Pressure: Normal Pulse: Regular Respiratory Rate: Normal Appearance: Positive for: Well-Appearing, Non-Toxic, Comfortable Pain Distress: None Mental Status: Positive for: Alert and Oriented X 3 - Systems Exam Head: Present: Atraumatic Mouth: Present: Moist Mucous Membranes Neck: Present: Normal Range of Motion Respiratory/Chest: Present: Clear to Auscultation Cardiovascular: Present: Regular Rate and Rhythm Lower Extremity: Present: CALF TENDERNESS (+ left calf tenderness; no erythema; no edema), NORMAL PULSES, Normal ROM, Neurovascularly Intact, Capillary Refill < 2 s. No: Swelling, Erythema, Deformity Neurological: Present: GCS=15, Speech Normal Skin: Present: Warm, Dry, Normal Color. No: Rashes Psychiatric: Present: Alert, Oriented x 3 Medical Decision Making ED Course and Treatment: 05/12/18 09:54 Patient is nontoxic well-appearing in no distress with stable vital signs lungs are clear to auscultation bilaterally. Venous duplex of the left lower leg; no dvt. verbal report by instrument and control technician cbc: wnl cmp; slightly elevated ast/alt Patient reassessment; patient is nontoxic well-appearing in no distress with stable vital signs i spoke with the patients PMD office. i advised Celia at the office of the negative results and she will let dr. oliveira know. I discussed the results with patient about followup with a primary care physician within the next 2 days as well as the orthopedist. I've advised return if symptoms worsen persist or if there's concerning symptoms develop. Advised patient of elevated LFTs. Patient was advised that if the pain continues she should have repeat ultrasound within the next week to 2 weeks. Patient verbalizes understanding of discharge instructions and need for immediate followup. all aspects of this case were discussed the attending of record. Impression: Leg pain Tylenol every 4 hours as needed for pain Followup primary care physician within the next 2 days Follow up with the orthopedist within the next 2 days Return if symptoms worsen persist or if new symptoms develop - RAD Interpretation Radiology Orders: 05/12/18 09:41 DUPLEX LOWER EXTRM VEIN LEFT [US] Stat Disposition/Present on Arrival - Present on Arrival Any Indicators Present on Arrival: No History of DVT/PE: No History of Uncontrolled Diabetes: No Urinary Catheter: No History of Decub. Ulcer: No History Surgical Site Infection Following: None - Disposition Have Diagnosis and Disposition been Completed?: Yes Diagnosis: Leg pain Disposition: HOME/ ROUTINE Disposition Time: 10:45 Patient Plan: Discharge Condition: GOOD Discharge Instructions (ExitCare): Lower Extremity Muscle Strain (DC) Additional Instructions: Tylenol every 4 hours as needed for pain Followup primary care physician within the next 2 days Follow up with the orthopedist within the next 2 days Return if symptoms worsen persist or if new symptoms develop Referrals: Dalia Barrett MD [Doctor [facility]] - Follow up with primary Forms: [facility] [employer] (Maltese), WORK NOTE
[2018-05-12 10:03] LABS: BASO # 0.01 K/mm3 (0.0-2.0); BASO % 0.2 % (0.0-3.0); EOS # 0.1 (0.0-0.7); EOS % 1.3 % (1.5-5.0); HEMOGLOBIN 15.8 g/dL (12.0-16.0); LYMPH # 1.4 (1.2-3.4); LYMPH % 23.1 % (22.0-35.0); MEAN CELL VOLUME 90.8 fl (80.0-105.0); MEAN CORPUSCULAR HGB CONC 34.2 g/dl (31.0-37.0); MEAN PLATELET VOLUME 9.3 fl (7.0-11.0); MONO # 0.9 (0.1-0.6); MONO % 14.6 % (1.0-6.0); RBC 5.09 10^6/uL (3.5-6.1); RED CELL DISTRIBUTION WIDTH 13.4 % (11.5-14.5)
[2018-05-12 10:22] LABS: ALB/GLOB RATIO 1.2 (1.1-1.8); ALBUMIN 4.6 g/dL (3.0-4.8); ALT/SGPT 80 U/L (7-56); AST/SGOT 63 U/L (14-36); BLOOD UREA NITROGEN 11 mg/dL (7-21); CALCIUM 9.3 mg/dL (8.4-10.5); GFR NON-AFRICAN AMERICAN > 60
[2018-05-12 11:08] VITALS: BP 147/66; TEMP 98.7; O2SAT 97
--- NOTE | 2018-05-13 18:43 | US ---
PROCEDURE: Left lower extremity venous US HISTORY: Leg pain and swelling. Evaluate for DVT. PHYSICIAN(S): Shahzad Harp MD. TECHNIQUE: Duplex sonography and color-flow Doppler with graded compression were used to evaluate the deep venous system of the left lower extremity. FINDINGS: The visualized deep venous system of the left lower extremity is sonographically normal and compressible. Normal wave forms and augmentation are seen. There is no sonographic evidence for deep venous thrombosis in the visualized segments of the left lower extremity. IMPRESSION: 1. No sonographic evidence for deep venous thrombosis in the visualized segments of the left lower extremity.
== END 2018-05-12 11:06 | disposition home or self-care (01) ==
LOC: ED 09:22
DX: M79.662 Pain in left lower leg (principal)